=== PATIENT | male | born 1935 | race Caucasian/White ===

== ENCOUNTER 2019-01-05 12:15 | Inpatient (IN) | payer MEDICARE, OTHER ==
[~2019-01-05] VITALS: Ht 180.3 cm; Wt 71.7 kg
[2019-01-05] MEDS ORDERED: NS IV 1000 ML 1,000 ML IV STA ×2 (12:43→16:12)
[2019-01-05] MEDS ORDERED: cefTRIAXone FOR IV USE 1,000 MG in WATER (STERILE) FOR INJECTION 10 ML IV STA (12:43)
--- NOTE | 2019-01-05 12:48 | ED General ---
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 No fever, states the patient apparently had a temperature of 100.1 several days ago but no specific infection was diagnosed. There has been no observed focal neurologic abnormality like weakness or numbness. Allergies and Home Medications Allergies Coded Allergies: No Known Drug Allergies (Unverified , 01/05/19) Patient Home Medication List Home Medication List Reviewed: Yes Review of Systems Review of Systems Constitutional: see HPI EENTM: no symptoms reported Respiratory: see HPI Cardiovascular: no symptoms reported Gastrointestinal: no symptoms reported Genitourinary: no symptoms reported Musculoskeletal: no symptoms reported Skin: no symptoms reported Psychiatric/Neurological: See HPI Hematologic/Lymphatic: No Symptoms Reported Immunological/Allergic: no symptoms reported Past Nvanudd-Txvocl-Sonaxn Hx Past Med/Social Hx: Reviewed Nursing Past Med/Soc Hx Physical Exam Vital Signs Vital Signs - First Documented 01/05/19 12:15 Temp 97.2 Pulse 65 Resp 20 B/P (MAP) 160/101 (120) Pulse Ox 95 O2 Delivery Room Air Capillary Refill : Height, Weight, BMI Height: '" Weight: lbs. oz. kg; BMI Method: General Appearance: No Apparent Distress Eyes: Bilateral Eye PERRL, Bilateral Eye EOMI HEENT: Other (tacky mucous membranes) Neck: Supple; No JVD Respiratory: Lungs Clear; No Rales, No Rhonci, No Stridor, No Wheezing Cardiovascular: Regular Rate, Rhythm, Normal Peripheral Pulses Gastrointestinal: Non Tender, Soft Neurologic/Psychiatric: Other (patient is awake with eyes closed, he is doing repetitive movements with his face, he will open his eyes to command, he will move all extremities grossly symmetrically with approximately 4 out of 5 strength in all extremities except with hip flexion which is about 3 of 5, patient's is unaware of a history of focal weakness but she states that he does require assistance to stand) Skin: Warm/Dry Focused Exam Lactate Level 01/05/19 13:36: Lactic Acid Level 1.27 Lactic Acid Level Laboratory Tests Test 4/25/19 13:36 Lactic Acid Level 1.27 MMOL/L (0.50-2.00) Procedures/Interventions Lumen: single (ultrasound guided IV placement at 1:20 PM. Indication: Inability to obtain venous access, administration of medication, obtaining blood for labs. Probe covered with sterile gloves, sterile gel was used. Large area in the right antecubital fossa was prepared with chlorhexidine gluconate. 20g angiocath was inserted under direct ultrasound guidance into her right antecubital fossa vein with good blood return and fluid flow. Sterile Tegaderm was placed. One attempt. Patient tolerated the procedure very well. There were no observed complications.) Progress/Results/Core Measures Suspected Sepsis SIRS Temperature: Pulse: Respiratory Rate: Laboratory Tests 01/05/19 13:36: White Blood Count 7.4 Blood Pressure / Mean: 01/05/19 13:36: Lactic Acid Level 1.27 Laboratory Tests 01/05/19 13:36: Creatinine 1.69H, INR Comment 1.1, Platelet Count 468H, Total Bilirubin 0.4 Results/Orders Lab Results Laboratory Tests Test 01/05/19 13:36 01/05/19 14:42 Range/Units White Blood Count 7.4 4.3-11.0 10^3/uL Red Blood Count 4.48 4.35-5.85 10^6/uL Hemoglobin 13.6 13.3-17.7 G/DL Hematocrit 43 40-54 % Mean Corpuscular Volume 96 80-99 FL Mean Corpuscular Hemoglobin 30 25-34 PG Mean Corpuscular Hemoglobin Concent 32 32-36 G/DL Red Cell Distribution Width 13.3 10.0-14.5 % Platelet Count 468 H 130-400 10^3/uL Mean Platelet Volume 9.9 7.4-10.4 FL Neutrophils (%) (Auto) 71 42-75 % Lymphocytes (%) (Auto) 13 12-44 % Monocytes (%) (Auto) 10 0-12 % Eosinophils (%) (Auto) 5 0-10 % Basophils (%) (Auto) 1 0-10 % Neutrophils # (Auto) 5.3 1.8-7.8 X 10^3 Lymphocytes # (Auto) 0.9 L 1.0-4.0 X 10^3 Monocytes # (Auto) 0.7 0.0-1.0 X 10^3 Eosinophils # (Auto) 0.3 0.0-0.3 10^3/uL Basophils # (Auto) 0.1 0.0-0.1 10^3/uL Prothrombin Time 14.4 12.2-14.7 SEC INR Comment 1.1 0.8-1.4 Activated Partial Thromboplast Time 33 24-35 SEC Sodium Level 144 135-145 MMOL/L Potassium Level 4.4 3.6-5.0 MMOL/L Chloride Level 103 98-107 MMOL/L Carbon Dioxide Level 26 21-32 MMOL/L Anion Gap 15 H 5-14 MMOL/L Blood Urea Nitrogen 30 H 7-18 MG/DL Creatinine 1.69 H 0.60-1.30 MG/DL Estimat Glomerular Filtration Rate 39 BUN/Creatinine Ratio 18 Glucose Level 92 70-105 MG/DL Lactic Acid Level 1.27 0.50-2.00 MMOL/L Calcium Level 9.4 8.5-10.1 MG/DL Corrected Calcium 9.9 8.5-10.1 MG/DL Total Bilirubin 0.4 0.1-1.0 MG/DL Aspartate Amino Transf (AST/SGOT) 11 5-34 U/L Alanine Aminotransferase (ALT/SGPT) 8 0-55 U/L Alkaline Phosphatase 70 40-136 U/L Troponin T 50 H <=15 NG/L Pro-B-Type Natriuretic Peptide 752.4 H <75.0 PG/ML Total Protein 7.2 6.4-8.2 GM/DL Albumin 3.4 3.2-4.5 GM/DL Urine Color YELLOW Urine Clarity CLEAR Urine pH 5.5 5-9 Urine Specific Hancock 1.025 H 1.016-1.022 Urine Protein NEGATIVE NEGATIVE Urine Glucose (UA) NEGATIVE NEGATIVE Urine Ketones NEGATIVE NEGATIVE Urine Nitrite NEGATIVE NEGATIVE Urine Bilirubin NEGATIVE NEGATIVE Urine Urobilinogen 0.2 NORMAL MG/DL Urine Leukocyte Esterase NEGATIVE NEGATIVE Urine RBC (Auto) NEGATIVE NEGATIVE Urine RBC NONE /HPF Urine WBC 0-2 /HPF Urine Squamous Epithelial Cells 0-2 /HPF Urine Crystals NONE /LPF Urine Bacteria NEGATIVE /HPF Urine Casts NONE /LPF Urine Mucus NONE /LPF Urine Culture Indicated NO My Orders Orders - AGUILAR CADE DO Ct Head Wo (01/05/19 12:20) Chest 1 View Ap/Pa Only (01/05/19 12:20) Ekg Tracing (01/05/19 12:20) Cbc With Automated Diff (01/05/19 12:20) Comprehensive Metabolic Panel (01/05/19 12:20) Probnp Fs (01/05/19 12:20) Troponin T (01/05/19 12:20) Protime With Inr (01/05/19 12:20) Partial Thromboplastin Time (01/05/19 12:20) Ua Culture If Indicated (01/05/19 12:20) Lactic Acid Analyzer (01/05/19 12:42) Ns Iv 1000 Ml (Sodium Chloride 0.9%) (01/05/19 12:43) Ceftriaxone For Iv Use (Rocephin For I (01/05/19 12:43) Blood Culture (01/05/19 13:13) Blood Culture (01/05/19 13:51) Clindamycin 600 Mg/50 Ml Ivpb (Cleocin P (01/05/19 14:30) Aspirin Suppository (Aspirin Suppository (01/05/19 16:12) Ns Iv 1000 Ml (Sodium Chloride 0.9%) (01/05/19 16:12) Medications Given in ED Current Medications Medications Dose Ordered Sig/Debby Route Start Time Stop Time Status Last Admin Dose Admin Clindamycin Phosphate/Dextrose 50 ml @ 100 mls/hr ONCE ONCE IV 01/05/19 14:30 01/05/19 14:59 DC 01/05/19 15:06 100 MLS/HR Vital Signs/I&O 01/05/19 01/05/19 12:15 14:57 Temp 97.2 Pulse 65 Resp 20 20 B/P (MAP) 160/101 (120) 107/61 Pulse Ox 95 97 O2 Delivery Room Air Room Air Capillary Refill : Progress Note : Progress Note Pt treated for aspiration PNA w rocephin and clindamycin, received 1 L NSS bolus as well for possible sepsis although BP remained stable and lactate <2. Clinically he remained stable overall while in the ED. Did have elevated troponin but pt is able to state not having chest pain. I have included rectal ASA in admission orders as we do not have suppository form of aspirin here and as pt clearly an aspiration risk. I have also included serial troponins for admission orders. I will give a second liter bolus at 500 mL an hour while patient is on the monitor, he is obviously dehydrated based on his history of dysphagia recently and with a developing infection ensuring that he is adequately volume resuscitated now may improve his outcome if he is a late presenter with severe sepsis or septic shock. Pt's stay was prolonged as we were unable to reach Dr Wooten for some time however when we did reach him he stated the printed call schedule was inaccurate and Dr Elias was actually the covering hospitalist at this time. Dr Elias did accept admission, requested for admission orders joseph, NSS mIVF at 70 ml/hr, list Dr Womack as consult and she would actually contact him. ECG EKG : Comment 1238: Sinus rhythm with first-degree AV block rate of 65, WI interval is 212 ms. Normal axis. Early precordial R-wave progression. Scooping of the ST segment with up to 1 mm of depression in leads 2 and V3 through V6. Nonspecific T-wave flattening in 3 and aVF. Small lateral Q waves. Departure Impression Primary Impression: Aspiration pneumonitis Additional Impressions: Acute encephalopathy Elevated troponin Elevated brain natriuretic peptide (BNP) level Disposition: 09 ADMITTED INPATIENT Condition: Stable Transfer Time Spoke to Accepting Phy: 15:[address] Elias accepts at [facility]. Method of Transfer: EMS AGUILAR CADE DO Jan 05, 2019 12:48
--- NOTE | 2019-01-05 14:11 | Diagnostic Imaging Report ---
INDICATION: Lethargy. EXAMINATION: CT brain obtained without IV contrast. COMPARISON: There are no prior studies for comparison. FINDINGS: Portions of the study are limited by motion artifact. There are diffuse atrophic changes. There are chronic encephalomalacia changes in the frontal lobes of both sides. There is diffuse ventricular prominence which is likely secondary to volume loss. There is no acute hemorrhage or mass effect or midline shift. Calvarial windows are normal. IMPRESSION: Atrophic changes and chronic changes in deep white matter with chronic encephalomalacia changes in the frontal lobes. Ventricular prominence is seen which is likely secondary to volume loss. There is no acute hemorrhage or definite acute finding. Dictated by: Dictated on workstation # [id number]
--- NOTE | 2019-01-05 14:17 | Diagnostic Imaging Report ---
INDICATION: Shortness of air. COMPARISON: None. FINDINGS: Single frontal radiographic view of the chest was obtained and shows normal cardiac silhouette and pulmonary vasculature. Lung fragoso show patchy alveolar opacity within the right lung base partially obscuring the right hemidiaphragm. Lungs otherwise show low inspiratory volumes with crowding of central hilar structures. There is no large pleural effusion or pneumothorax. Bony structures show no gross acute abnormalities. IMPRESSION: 1. Patchy airspace opacities within the right base concerning for pneumonia. Followup is recommended. Dictated by: Dictated on workstation # [id number]
[2019-01-05 14:23] LABS: HEMATOCRIT 43 % (40-54); HEMOGLOBIN 13.6 G/DL (13.3-17.7); MEAN CORPUSCULAR HEMOGLOBIN 30 PG (25-34); MEAN CORPUSCULAR VOLUME 96 FL (80-99); WHITE BLOOD COUNT 7.4 10^3/uL (4.3-11.0)
[2019-01-05 14:24] LABS: BASOPHILS # (AUTO) 0.1 10^3/uL (0.0-0.1); BASOPHILS % (AUTO) 1 % (0-10); EOSINOPHILS # (AUTO) 0.3 10^3/uL (0.0-0.3); EOSINOPHILS % (AUTO) 5 % (0-10); LYMPHOCYTES # (AUTO) 0.9 X 10^3 (1.0-4.0); LYMPHOCYTES % (AUTO) 13 % (12-44); MEAN CORPUSCULAR HGB CONC 32 G/DL (32-36); MEAN PLATELET VOLUME 9.9 FL (7.4-10.4); MONOCYTES # (AUTO) 0.7 X 10^3 (0.0-1.0); MONOCYTES % (AUTO) 10 % (0-12); NEUTROPHILS # (AUTO) 5.3 X 10^3 (1.8-7.8); NEUTROPHILS % (AUTO) 71 % (42-75); PLATELET COUNT 468 10^3/uL (130-400); RED CELL DISTRIBUTION WIDTH 13.3 % (10.0-14.5)
[2019-01-05 14:27] LABS: INR 1.1 (0.8-1.4); PROTHROMBIN TIME PATIENT 14.4 SEC (12.2-14.7)
[2019-01-05 14:28] LABS: ALBUMIN 3.4 GM/DL (3.2-4.5); BILIRUBIN,TOTAL 0.4 MG/DL (0.1-1.0); CALCIUM 9.4 MG/DL (8.5-10.1); CREATININE SERUM 1.69 MG/DL (0.60-1.30); POTASSIUM 4.4 MMOL/L (3.6-5.0); TOTAL PROTEIN 7.2 GM/DL (6.4-8.2)
[2019-01-05] MEDS ORDERED: CLINDAMYCIN 600 MG/50 ML IVPB 50 ML IV ONE (14:30)
[2019-01-05] MEDS ORDERED: CHOL100045 PO (15:27)
[2019-01-05] MEDS ORDERED: SENN-141 PO (15:27)
[2019-01-05] MEDS ORDERED: LOSA1TAB20 PO (15:27)
[2019-01-05] MEDS ORDERED: AMAN100C18 PO (15:27)
[2019-01-05] MEDS ORDERED: ALPR0.254 PO (15:27)
[2019-01-05] MEDS ORDERED: LEVE500T6 PO (15:28)
[2019-01-05] MEDS ORDERED: MAGN400O7 PO (15:29)
[2019-01-05] MEDS ORDERED: ASPIRIN 300 MG (5 GR) SUPPOSITORY PR STA (16:12)
[2019-01-05 16:16] LABS: BACTERIA,URINE NEGATIVE /HPF; BILIRUBIN,URINE NEGATIVE (NEGATIVE); CLARITY,URINE CLEAR; COLOR,URINE YELLOW; GLUCOSE, URINE (UA) NEGATIVE (NEGATIVE); KETONES,URINE NEGATIVE (NEGATIVE); LEUKOCYTE ESTERASE ,URINE NEGATIVE (NEGATIVE); NITRITE,URINE NEGATIVE (NEGATIVE); PH,URINE 5.5 (5-9); PROTEIN,URINE NEGATIVE (NEGATIVE); SQUAMOUS EPITHELIAL CELL,UR 0-2 /HPF; UROBILINOGEN,URINE 0.2 MG/DL (NORMAL); WBC,URINE 0-2 /HPF
--- NOTE | 2019-01-05 18:30 | NUR ---
Kris Ames admitted to room 409-1, with an admitting diagnosis of pna , on 01/05/19 from [facility] ED via [facility], accompanied by ET STAFF.KRIS AMES introduced to surroundings, call light, bed controls, phone, TV, temperature control, lights, meal times, smoking policy, visitor policy, side rail policy, bathrooms and showers. Patient Rights given to patient in the handbook.KRIS AMES verbalizes understanding that [facility] is not responsible for the loss or damage to any personal effects or valuables that are kept in the patients posession during their hospitalization. The Patient Care Plans were discussed with the PT ET FAMILY. KRIS AMES verbalizes understanding of Interdisciplinary Patient Education. Patient and/or family were informed about the Rapid Response Team and its purpose.
[2019-01-05] MEDS ORDERED: NS IV 1000 ML 1,000 ML IV SCH (19:00)
[2019-01-05] MEDS ORDERED: PIPERACILLIN/TAZO 4.5 GM/NS 100 ML IV NR ×2 (19:00)
[2019-01-05] MEDS ORDERED: ASPIRIN 300 MG (5 GR) SUPPOSITORY PR NR (19:00)
[2019-01-05 20:06] VITALS: BP 171/88
[2019-01-05 20:35] VITALS: BP 133/75
--- NOTE | 2019-01-05 20:36 | NUR ---
Pt's requesting that HS medications be restarted. Dr. Elias notified. Orders received to restart Keppra 500 mg PO BID, Xanax 0.25 mo PO BID, et Amantadine 100 mg PO BID.
[2019-01-05] MEDS ORDERED: ALPRAZolam 0.25 MG (XANAX) TAB ONE (21:33)
[2019-01-05] MEDS ORDERED: LEVETIRACETAM 500 MG (KEPPRA) TAB PO ONE (21:34)
[2019-01-05] MEDS ORDERED: AMANTADINE 100 MG (SYMMETREL) CAP PO ONE (21:40)
[2019-01-05] MEDS: ALPRAZolam 0.25 MG (XANAX) TAB PO SCH (21:45)
[2019-01-05] MEDS: AMANTADINE 100 MG (SYMMETREL) CAP PO SCH (21:45)
[2019-01-05] MEDS: LEVETIRACETAM 500 MG (KEPPRA) TAB PO SCH (21:45)
[2019-01-05] MEDS: RT-ALBUTEROL SULF 2.5 MG/3 ML PRE-MIX VIAL IH SCH (21:57)
[2019-01-06 00:57] VITALS: BP 145/73
[2019-01-06] MEDS: PIPERACILLIN/TAZO 4.5 GM/NS 100 ML IV SCH ×6 (01:53→16:39)
[2019-01-06] MEDS: RT-ALBUTEROL SULF 2.5 MG/3 ML PRE-MIX VIAL IH SCH ×6 (02:03→22:07)
[2019-01-06 04:00] VITALS: BP 120/68
[2019-01-06 04:14] LABS: BASOPHILS % (AUTO) 1 % (0-10); EOSINOPHILS # (AUTO) 0.3 10^3/uL (0.0-0.3); EOSINOPHILS % (AUTO) 4 % (0-10); HEMATOCRIT 39 % (40-54); HEMOGLOBIN 12.6 G/DL (13.3-17.7); LYMPHOCYTES # (AUTO) 0.7 X 10^3 (1.0-4.0); LYMPHOCYTES % (AUTO) 12 % (12-44); MEAN CORPUSCULAR HEMOGLOBIN 31 PG (25-34); MEAN CORPUSCULAR HGB CONC 32 G/DL (32-36); MEAN CORPUSCULAR VOLUME 94 FL (80-99); MEAN PLATELET VOLUME 9.5 FL (7.4-10.4); MONOCYTES # (AUTO) 0.8 X 10^3 (0.0-1.0); MONOCYTES % (AUTO) 12 % (0-12); NEUTROPHILS # (AUTO) 4.4 X 10^3 (1.8-7.8); NEUTROPHILS % (AUTO) 71 % (42-75); PLATELET COUNT 381 10^3/uL (130-400); RED CELL DISTRIBUTION WIDTH 13.5 % (10.0-14.5); WHITE BLOOD COUNT 6.2 10^3/uL (4.3-11.0)
[2019-01-06 04:33] LABS: ALANINE AMINOTRANSFERASE 12 U/L (0-55); ALBUMIN 3.1 GM/DL (3.2-4.5); ALKALINE PHOSPHATASE 59 U/L (40-136); BILIRUBIN,TOTAL 0.5 MG/DL (0.1-1.0); BUN/CREATININE RATIO 18; CALCIUM 8.9 MG/DL (8.5-10.1); CARBON DIOXIDE 19 MMOL/L (21-32); CHLORIDE 112 MMOL/L (98-107); CREATININE SERUM 1.48 MG/DL (0.60-1.30); GFR ESTIMATED 46; GLUCOSE 90 MG/DL (70-105); POTASSIUM 4.2 MMOL/L (3.6-5.0); SODIUM 144 MMOL/L (135-145)
[2019-01-06 08:00] VITALS: BP 158/70
--- NOTE | 2019-01-06 08:07 | Diagnostic Imaging Report ---
INDICATION: Pneumonia, followup. TECHNIQUE: Single view chest 5:56 a.m. CORRELATION STUDY: 01/05/2019 FINDINGS: Heart size and mediastinum are stable, as is the vasculature. Some residual infiltrate or atelectasis of the right lung base does persist but overall is improved. Unchanged elevated right diaphragm. Left lung unchanged. Rather advanced multilevel cervical spondylosis. IMPRESSION: 1. Improvement in aeration through the right lung base. Some residual atelectasis or infiltrate does remain. Dictated by: Dictated on workstation # [id number]
[2019-01-06] MEDS ORDERED: AMAN100C18 PO (08:40)
[2019-01-06] MEDS ORDERED: MAGN400O7 PO (08:40)
[2019-01-06] MEDS ORDERED: STAR227P PO (08:42)
--- NOTE | 2019-01-06 08:42 | NUR ---
UPDATED MED REC WITH MED LIST FROM [facility]
--- NOTE | 2019-01-06 09:05 | Consultation-Cardiology ---
HPI-Cardiology Cardiology Consultation: Date of Consultation 01/06/19 Time Seen by a Provider: 08:40 Date of Admission Attending Physician Claire Elias DO Admitting Physician No,Local Physician Consulting Physician MARY NOBLE MD, MA, FACP, FACC, [facility], CCDS Physician requesting consult: Dr Elias HPI: Chief Complaint: Reason for consultation: Elevated pro-BNP 83 yo man with numerous medical issues that are noted below who has been admitted by Dr Elias to her service after he presented to [facility] with gen weakness, low oxygen sat, and refusal to eat at his NH. He was diagnosed with aspiration pneumonia and mental status change. Communication is difficult. He is vague in providing a history. His is by his bedside today. He does not report cp or palp or syncope Has gen poor appetite Has had some shortness of breath lately Review of Systems-Cardiology Review of Systems Constitutional: As described under HPI Eyes: No vision change Ears/Nose/Throat: No ear discharge, No nasal drainage, No recent hearing loss Respiratory: As described under HPI Cardiovascular: As described under HPI Gastrointestinal: No diarrhea, No difficulty swallowing; poor appetite; No vomiting Genitourinary: No dysuria, No hematuria, No urine frequency changes Musculoskeletal: No back pain, No joint pain Skin: No rash, No ulcerations Psychiatric/Neurological: other (Oriented to place and person, but not time; chronic involuntary movements of limbs and head) GYZ-Exrrti-Bqgjvr Hx Patient Social History Alcohol Use: Denies Use Recreational Drug Use: No Smoking Status: Never a Smoker Recent Foreign Travel: No Recent Infectious Disease Expo: No Immunizations Up To Date Date of Pneumonia Vaccine: Jun 13, 2018 Past Medical History PMH As described under Assessment. Family Medical History Family Medical History: Does not report fam h/o of early CAD or SCD Does report fam h/o or Davison's chorea (daugther, brother, probably father) Allergies and Home Medications Allergies Coded Allergies: No Known Drug Allergies (Unverified , 01/05/19) Home Medications Alprazolam 0.25 Mg Tablet, 0.25 MG PO 0800,1700, (Reported) Amantadine HCl 100 Mg Capsule, 100 MG PO BID, (Reported) Amantadine HCl 100 Mg Capsule, 100 MG PO DAILY PRN for INCREASED INVOLUNTARY MOVEMENT, (Reported) Cholecalciferol (Vitamin D3) 1,000 Unit Tablet, 1,000 UNITS PO 1700, (Reported) Levetiracetam 500 Mg Tablet, 500 MG PO 0800,2000, (Reported) Losartan/Hydrochlorothiazide 1 Each Tablet, 1 TAB PO DAILY, (Reported) Magnesium Hydroxide 400 Mg/5 Ml Oral.susp, 30 ML PO TuFrSa, (Reported) Magnesium Hydroxide 400 Mg/5 Ml Oral.susp, 30 ML PO DAILY PRN for CONSTIPATION- 7TH LINE, (Reported) Sennosides 8.6 Mg Tablet, 8.6 MG PO BID, (Reported) Starch 227 Gm Powder, PO UD PRN for LIQUIDS, (Reported) Patient Home Medication List Home Medication List Reviewed: Yes Physical Exam-Cardiology Physical Exam Vital Signs/I&O 01/05/19 01/06/19 01/06/19 01/06/19 21:57 00:57 01:00 04:00 Temp 98.6 98.8 Pulse 84 80 71 Resp 20 20 B/P (MAP) 145/73 (97) 120/68 (85) Pulse Ox 92 96 98 O2 Delivery Room Air Room Air Room Air 01/06/19 01/06/19 01/06/19 07:00 07:31 08:00 Temp 96.1 Pulse 72 74 Resp 18 B/P (MAP) 158/70 (99) Pulse Ox 96 93 O2 Delivery Room Air Room Air 01/06/19 00:00 Intake Total 2130 ml Output Total 250 ml Balance 1880 ml Capillary Refill : Less Than 3 Seconds Constitutional: well-developed, well-nourished, other (Oriented x 2; communication difficult) HEENT: PERRL, EOMI; No xanthelasmas are seen Neck: carotid pulses are 2 + bilaterally, with good upstrokes Respiratory: No accessory muscle use; other (basal coarse crackle, more at R, alongwith diminished air entry at the bases) Cardiovascular: regular rate-rhythm, S1 and S2, systolic murmur (soft LEYDA at card base) Gastrointestinal: No tender; soft; No guarding, No rebound; audible bowel sounds Extremities: No clubbing, No cyanosis, No significant edema Neurologic/Psychiatric: other (See above for mental status, involuntary movement of head and neck; moves all limbs) Skin: No rash on exposed areas, No ulcerations on exposed areas Data Review Labs Laboratory Tests 01/05/19 13:36: White Blood Count 7.4, Red Blood Count 4.48, Hemoglobin 13.6, Hematocrit 43, Mean Corpuscular Volume 96, Mean Corpuscular Hemoglobin 30, Mean Corpuscular Hemoglobin Concent 32, Red Cell Distribution Width 13.3, Platelet Count 468H, Mean Platelet Volume 9.9, Neutrophils (%) (Auto) 71, Lymphocytes (%) (Auto) 13, Monocytes (%) (Auto) 10, Eosinophils (%) (Auto) 5, Basophils (%) (Auto) 1, Neutrophils # (Auto) 5.3, Lymphocytes # (Auto) 0.9L, Monocytes # (Auto) 0.7, Eosinophils # (Auto) 0.3, Basophils # (Auto) 0.1, Prothrombin Time 14.4, INR Comment 1.1, Activated Partial Thromboplast Time 33, Sodium Level 144, Potassium Level 4.4, Chloride Level 103, Carbon Dioxide Level 26, Anion Gap 15H , Blood Urea Nitrogen 30H, Creatinine 1.69H, Estimat Glomerular Filtration Rate 39, BUN/Creatinine Ratio 18, Glucose Level 92, Lactic Acid Level 1.27, Calcium Level 9.4, Corrected Calcium 9.9, Total Bilirubin 0.4, Aspartate Amino Transf ( AST/SGOT) 11, Alanine Aminotransferase (ALT/SGPT) 8, Alkaline Phosphatase 70, Troponin T 50H, Pro-B-Type Natriuretic Peptide 752.4H, Total Protein 7.2, Albumin 3.4 01/05/19 14:42: Urine Color YELLOW, Urine Clarity CLEAR, Urine pH 5.5, Urine Specific Byron 1.025H, Urine Protein NEGATIVE, Urine Glucose (UA) NEGATIVE, Urine Ketones NEGATIVE, Urine Nitrite NEGATIVE, Urine Bilirubin NEGATIVE, Urine Urobilinogen 0.2, Urine Leukocyte Esterase NEGATIVE, Urine RBC (Auto) NEGATIVE, Urine RBC NONE, Urine WBC 0-2, Urine Squamous Epithelial Cells 0-2, Urine Crystals NONE, Urine Bacteria NEGATIVE, Urine Casts NONE, Urine Mucus NONE, Urine Culture Indicated NO 01/05/19 19:05: Troponin I < 0.028 01/06/19 04:05: White Blood Count 6.2, Red Blood Count 4.12L, Hemoglobin 12.6L, Hematocrit 39L, Mean Corpuscular Volume 94, Mean Corpuscular Hemoglobin 31, Mean Corpuscular Hemoglobin Concent 32, Red Cell Distribution Width 13.5, Platelet Count 381, Mean Platelet Volume 9.5, Neutrophils (%) (Auto) 71, Lymphocytes (%) (Auto) 12, Monocytes (%) (Auto) 12, Eosinophils (%) (Auto) 4, Basophils (%) (Auto) 1, Neutrophils # (Auto) 4.4, Lymphocytes # (Auto) 0.7L, Monocytes # (Auto) 0.8, Eosinophils # (Auto) 0.3, Basophils # (Auto) 0.0, Sodium Level 144, Potassium Level 4.2, Chloride Level 112H, Carbon Dioxide Level 19L, Anion Gap 13, Blood Urea Nitrogen 26H, Creatinine 1.48H, Estimat Glomerular Filtration Rate 46, BUN/ Creatinine Ratio 18, Glucose Level 90, Calcium Level 8.9, Corrected Calcium 9.6 , Total Bilirubin 0.5, Aspartate Amino Transf (AST/SGOT) 10, Alanine Aminotransferase (ALT/SGPT) 12, Alkaline Phosphatase 59, Total Protein 6.0L, Albumin 3.1L, Troponin I < 0.028 Laboratory Tests 01/05/19 13:36 01/06/19 04:05 A/P-Cardiology Assessment/Admission Diagnosis 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 His does not desire any extensive cardiac w/u. Desires that he be treated conservatively and empirically. This appears reasonable, given that there there do not appear to be acute cardiac issues, clinically * We recommend continuation of iv fluids and monitoring of renal function and electrolytes * Dr Elias is managing his aspiration pneumonia, chorea, and altered mental status * Thanks for calling us in consultation Clinical Quality Measures DVT/VTE Risk/Contraindication: Risk Factor Score Per Nursin RFS Level Per Nursing on Admit: 4+=Very High MARY NOBLE MD FACP LOCATED [facility]IN [facility] CCDS Jan 06, 2019 09:05
[2019-01-06] MEDS: LEVETIRACETAM 500 MG (KEPPRA) TAB PO SCH ×2 (09:09→20:39)
[2019-01-06] MEDS: AMANTADINE 100 MG (SYMMETREL) CAP PO SCH ×2 (09:10→20:39)
[2019-01-06] MEDS: ALPRAZolam 0.25 MG (XANAX) TAB PO SCH ×2 (09:10→20:38)
--- NOTE | 2019-01-06 09:55 | History & Physical-Hospitalist ---
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 The most recent was January of 2018 with a hemorrhagic stroke that has resulted in bed ridden state at assisted living [place] where he will return to with significant help from who presented to the ER in [place] with altered mental status and Hypoxia found to have pneumonia, likely aspiration type. He has never had swallowing issues before per . I have restarted all of his home medications along with the help of his who knows the list by heart. He is a two person assist. Speech therapy will evaluate him but he seems to be eating and drinking well without any aspiration signs so will follow up with speech therapy but initiate a regular diet with grinded meat. He will be maintained on Zosyn empiric antibiotics and will be monitored closely. Source: RN/MD, caregiver Exam Limitations: clinical condition Date Seen 01/06/19 Time Seen by a Provider: 09:15 Attending Physician Claire Elias DO PCP No,Local Physician Referring Physician Date of Admission Jan 05, 2019 at 15:55 Home Medications & Allergies Home Medications Reviewed patient Home Medication Reconciliation performed by pharmacy medication reconciliations automobile technician and/or nursing. Patients Allergies have been reviewed. Allergies Allergies Coded Allergies No Known Drug Allergies (Unverified01/05/19) Past [id number]-Rpzhem Hx Past Med/Social Hx: Reviewed Nursing Past Med/Soc Hx, Reviewed and Corrections made Patient Social History Marrital Status: Employed/Student: retired Alcohol Use: Denies Use Recreational Drug Use: No Smoking Status: Never a Smoker Recent Foreign Travel: No Contact w/other who traveled: No Recent Hopitalizations: No Recent Infectious Disease Expo: No Immunizations Up To Date Date of Pneumonia Vaccine: Jun 13, 2018 Seasonal Allergies Seasonal Allergies: No Past Medical History Surgeries: Prostatectomy Cardiac: Hypertension Neurological: Parkinson's Disease, Seizure Disorder, Traumatic Brain Injury Faribault's chorea Gastrointestinal: Chronic Constipation Psychosocial: Anxiety History of Blood Disorders: No Review of Systems Constitutional: see HPI, fever, malaise, weakness EENTM: no symptoms reported Respiratory: cough Cardiovascular: no symptoms reported Gastrointestinal: no symptoms reported Genitourinary: no symptoms reported Musculoskeletal: no symptoms reported Skin: no symptoms reported Psychiatric/Neurological: No Symptoms Reported All Other Systems Reviewed Negative Unless Noted: Yes Physical Exam Physical Exam Vital Signs Vital Signs - First Documented 01/05/19 12:15 Temp 97.2 Pulse 65 Resp 20 B/P (MAP) 160/101 (120) Pulse Ox 95 O2 Delivery Room Air Capillary Refill : Less Than 3 Seconds Height, Weight, BMI Height: 5'11.00" Weight: 158lbs. 7.0oz. [id number]; 24.8 BMI Method:Actual General Appearance: No Apparent Distress, WD/WN, Chronically ill Eyes: Right Eye Normal Inspection, Right Eye PERRL HEENT: PERRL/EOMI, Normal ENT Inspection, Pharynx Normal, Moist Mucous Membranes Neck: Full Range of Motion, Normal Inspection, Non Tender Respiratory: Chest Non Tender, No Accessory Muscle Use, No Respiratory Distress , Crackles, Decreased Breath Sounds Cardiovascular: Regular Rate, Rhythm, No Edema, No Gallop, No JVD, No Murmur, Normal Peripheral Pulses Gastrointestinal: Normal Bowel Sounds, No Organomegaly, No Pulsatile Mass, Non Tender, Soft Back: Normal Inspection, No CVA Tenderness, No Vertebral Tenderness Extremity: Normal Capillary Refill, Normal Inspection, Normal Range of Motion, Non Tender, No Calf Tenderness, No Pedal Edema Neurologic/Psychiatric: Alert, Depressed Affect, Disoriented, Motor Weakness ( generalized and chronic) Skin: Normal Color, Warm/Dry Lymphatic: No Adenopathy Results Results/Procedures Labs Laboratory Tests 01/05/19 13:36 01/06/19 04:05 Patient resulted labs reviewed. Assessment/Plan Admission Diagnosis Assessment: Aspiration pneumonia [place]'s chorea HTN Seizures Hemorrhagic stroks 01/28 Falls Severe debility CRI Plan: Home meds Nebs O2 Abx Speech therapy Admission Status: Inpatient Order (span 2 midnights) Reason for Inpatient Admission: Very debilitated advanced age patient with aspiration pneumonia Diagnosis/Problems Diagnosis/Problems (1) Aspiration pneumonitis Status: Acute (2) [place] chorea Status: Chronic (3) Parkinson disease Status: Chronic (4) Falls Status: Chronic Qualifiers: Encounter type: sequela Qualified Codes: W19.XXXS - Unspecified fall, sequela (5) Seizure Status: Chronic (6) Hypertension Status: Chronic Qualifiers: Hypertension type: essential hypertension Qualified Codes: I10 - Essential (primary) hypertension (7) Renal insufficiency Status: Chronic (8) Chronic constipation Status: Chronic (9) Elevated brain natriuretic peptide (BNP) level Status: Acute (10) Acute encephalopathy Status: Acute Clinical Quality Measures DVT/VTE Risk/Contraindication: Risk Factor Score Per Nursin RFS Level Per Nursing on Admit: 4+=Very High CLAIRE ELIAS DO Jan 06, 2019 09:55
[2019-01-06] MEDS ORDERED: amLODIPine 5 MG (NORVASC) TAB PO NR (10:00)
[2019-01-06] MEDS ORDERED: MILK OF MAGNESIA 400 MG/5 ML 30 ML UDC PO PRN (10:00)
[2019-01-06] MEDS ORDERED: AMANTADINE 100 MG (SYMMETREL) CAP PO PRN (10:04)
[2019-01-06 12:00] VITALS: BP 135/84
[2019-01-06 15:07] VITALS: BP 158/75
[2019-01-06] MEDS ORDERED: amLODIPine 5 MG (NORVASC) TAB ONE (16:32)
[2019-01-06] MEDS: VITAMIN D3 1,000 UNITS (CHOLECALCIFEROL) TABLET PO SCH (16:39)
[2019-01-06 19:16] VITALS: BP 112/56
[2019-01-06] MEDS: SENNOSIDES 8.6 MG (SENOKOT) TAB PO SCH (20:39)
[2019-01-07] VITALS (7 sets, daily range): BP systolic 95–134; BP diastolic 51–71
[2019-01-07] MEDS: PIPERACILLIN/TAZO 4.5 GM/NS 100 ML IV SCH ×6 (02:25→16:27)
[2019-01-07] MEDS: RT-ALBUTEROL SULF 2.5 MG/3 ML PRE-MIX VIAL IH SCH ×6 (02:49→22:28)
[2019-01-07 05:06] LABS: BASOPHILS % (AUTO) 0 % (0-10); EOSINOPHILS # (AUTO) 0.2 10^3/uL (0.0-0.3); EOSINOPHILS % (AUTO) 2 % (0-10); HEMATOCRIT 38 % (40-54); HEMOGLOBIN 12.1 G/DL (13.3-17.7); LYMPHOCYTES # (AUTO) 0.7 X 10^3 (1.0-4.0); LYMPHOCYTES % (AUTO) 10 % (12-44); MEAN CORPUSCULAR HEMOGLOBIN 30 PG (25-34); MEAN CORPUSCULAR HGB CONC 32 G/DL (32-36); MEAN CORPUSCULAR VOLUME 94 FL (80-99); MEAN PLATELET VOLUME 9.9 FL (7.4-10.4); MONOCYTES # (AUTO) 0.8 X 10^3 (0.0-1.0); MONOCYTES % (AUTO) 11 % (0-12); NEUTROPHILS # (AUTO) 5.3 X 10^3 (1.8-7.8); NEUTROPHILS % (AUTO) 76 % (42-75); PLATELET COUNT 432 10^3/uL (130-400); RED CELL DISTRIBUTION WIDTH 13.8 % (10.0-14.5); WHITE BLOOD COUNT 6.9 10^3/uL (4.3-11.0)
[2019-01-07 05:31] LABS: ALBUMIN 3.2 GM/DL (3.2-4.5); BILIRUBIN,TOTAL 0.6 MG/DL (0.1-1.0); CALCIUM 9.2 MG/DL (8.5-10.1); CREATININE SERUM 1.7 MG/DL (0.60-1.30); POTASSIUM 4.1 MMOL/L (3.6-5.0); TOTAL PROTEIN 6.1 GM/DL (6.4-8.2)
[2019-01-07] MEDS: MILK OF MAGNESIA 400 MG/5 ML 30 ML UDC PO SCH (07:49)
[2019-01-07] MEDS: SENNOSIDES 8.6 MG (SENOKOT) TAB PO SCH ×2 (07:50→19:56)
[2019-01-07] MEDS: LEVETIRACETAM 500 MG (KEPPRA) TAB PO SCH ×2 (07:50→19:57)
[2019-01-07] MEDS: ALPRAZolam 0.25 MG (XANAX) TAB PO SCH ×2 (07:51→19:57)
[2019-01-07] MEDS: AMANTADINE 100 MG (SYMMETREL) CAP PO SCH ×2 (07:55→19:56)
--- NOTE | 2019-01-07 08:27 | Progress Note-Hospitalist ---
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 The most recent was January of 2018 with a hemorrhagic stroke that has resulted in bed ridden state at assisted living [facility] where he will return to with significant help from who presented to the ER in [place] with altered mental status and Hypoxia found to have pneumonia, likely aspiration type. He has never had swallowing issues before per . I have restarted all of his home medications along with the help of his who knows the list by heart. He is a two person assist. Speech therapy will evaluate him but he seems to be eating and drinking well without any aspiration signs so will follow up with speech therapy but initiate a regular diet with grinded meat. He will be maintained on Zosyn empiric antibiotics and will be monitored closely. Focused Exam Lactate Level 01/05/19 13:36: Lactic Acid Level 1.27 Objective Exam Vital Signs Vital Signs Date Time Temp Pulse Resp B/P (MAP) Pulse Ox O2 Delivery O2 Flow Rate FiO2 01/07/19 15:44 100.2 77 21 123/60 (81) 91 Room Air Capillary Refill : Less Than 3 Seconds General Appearance: No Apparent Distress, WD/WN, Chronically ill HEENT: PERRL/EOMI, Normal ENT Inspection, Pharynx Normal, Moist Mucous Membranes Neck: Full Range of Motion, Normal Inspection, Non Tender Respiratory: Chest Non Tender, No Accessory Muscle Use, No Respiratory Distress , Crackles, Decreased Breath Sounds Cardiovascular: Regular Rate, Rhythm, No Edema, No Gallop, No JVD, No Murmur, Normal Peripheral Pulses Gastrointestinal: Normal Bowel Sounds, No Organomegaly, No Pulsatile Mass, Non Tender, Soft Back: Normal Inspection, No CVA Tenderness, No Vertebral Tenderness Extremity: Normal Capillary Refill, Normal Inspection, Normal Range of Motion, Non Tender, No Calf Tenderness, No Pedal Edema Neurologic/Psychiatric: Alert, Depressed Affect, Disoriented, Motor Weakness ( generalized and chronic) Skin: Normal Color, Warm/Dry Lymphatic: No Adenopathy Results/Procedures Lab Laboratory Tests 01/07/19 04:35 Patient resulted labs reviewed. Assessment/Plan Assessment and Plan Assess & Plan/Chief Complaint Assessment: Aspiration pneumonia placed on Zosyn Sawyer's chorea HTN Seizures Hemorrhagic stroke 01/28 Falls Severe debility with bedridden status CRI creat appears to usually run 1.6 Plan: Home meds Nebs O2 Abx Speech therapy is appreciated Advance diet Diagnosis/Problems Diagnosis/Problems (1) Aspiration pneumonitis Status: Acute (2) Vic chorea Status: Chronic (3) Parkinson disease Status: Chronic (4) Falls Status: Chronic Qualifiers: Encounter type: sequela Qualified Codes: W19.XXXS - Unspecified fall, sequela (5) Seizure Status: Chronic (6) Hypertension Status: Chronic Qualifiers: Hypertension type: essential hypertension Qualified Codes: I10 - Essential (primary) hypertension (7) Renal insufficiency Status: Chronic (8) Chronic constipation Status: Chronic (9) Elevated brain natriuretic peptide (BNP) level Status: Acute (10) Acute encephalopathy Status: Acute Clinical Quality Measures DVT/VTE Risk/Contraindication: Risk Factor Score Per Nursin RFS Level Per Nursing on Admit: 4+=Very High NATALI NICE DO Jan 07, 2019 08:27
[2019-01-07] MEDS ORDERED: amLODIPine 5 MG (NORVASC) TAB PO SCH (09:00)
--- NOTE | 2019-01-07 16:14 | Progress Note-Cardiology ---
Cardiology SOAP Progress Note Subjective: No cp or palp or syncope or shortness of breath at rest Objective: I&O/Vital Signs 01/07/19 01/07/19 01/07/19 01/07/19 07:00 07:09 08:00 08:00 Temp 99.0 Pulse 75 75 Resp 20 B/P (MAP) 134/64 (87) Pulse Ox 92 92 91 O2 Delivery Room Air Room Air Room Air 01/07/19 01/07/19 01/07/19 01/07/19 10:45 12:00 12:45 14:33 Temp 98.8 Pulse 77 85 Resp 20 B/P (MAP) 100/64 (76) Pulse Ox 90 94 91 O2 Delivery Room Air Room Air Room Air 01/07/19 15:44 Temp 100.2 Pulse 77 Resp 21 B/P (MAP) 123/60 (81) Pulse Ox 91 O2 Delivery Room Air 01/07/19 00:00 Intake Total 1910 ml Output Total 575 ml Balance 1335 ml Weight (Pounds): 158 Weight (Ounces): 7.0 Weight (Calculated Kilograms): 71.323644 Constitutional: AAO x 3, well-developed, well-nourished, other Respiratory: No accessory muscle use; other (basal coarse crackle, more at R, alongwith diminished air entry at the bases) Cardiovascular: regular rate-rhythm, S1 and S2, systolic murmur (soft LEYDA at card base) Gastrointestional: No tender; soft; No guarding, No rebound; audible bowel sounds Extremities: No clubbing, No cyanosis, No significant edema Neurologic/Psychiatric: oriented x 3, other (involuntary movement of head and neck; moves all limbs) Skin: No rash on exposed areas, No ulcerations on exposed areas Results/Procedures: Labs Laboratory Tests 01/06/19 17:45: Troponin I 0.033H 01/07/19 04:35: White Blood Count 6.9, Red Blood Count 3.99L, Hemoglobin 12.1L, Hematocrit 38L, Mean Corpuscular Volume 94, Mean Corpuscular Hemoglobin 30, Mean Corpuscular Hemoglobin Concent 32, Red Cell Distribution Width 13.8, Platelet Count 432H, Mean Platelet Volume 9.9, Neutrophils (%) (Auto) 76H, Lymphocytes (%) (Auto) 10L , Monocytes (%) (Auto) 11, Eosinophils (%) (Auto) 2, Basophils (%) (Auto) 0, Neutrophils # (Auto) 5.3, Lymphocytes # (Auto) 0.7L, Monocytes # (Auto) 0.8, Eosinophils # (Auto) 0.2, Basophils # (Auto) 0.0, Sodium Level 141, Potassium Level 4.1, Chloride Level 111H, Carbon Dioxide Level 20L, Anion Gap 10, Blood Urea Nitrogen 22H, Creatinine 1.70H, Estimat Glomerular Filtration Rate 39, BUN/ Creatinine Ratio 13, Glucose Level 95, Calcium Level 9.2, Corrected Calcium 9.8 , Total Bilirubin 0.6, Aspartate Amino Transf (AST/SGOT) 12, Alanine Aminotransferase (ALT/SGPT) 8, Alkaline Phosphatase 56, Total Protein 6.1L, Albumin 3.2 Microbiology 01/05/19 Blood Culture - Preliminary, Resulted No growth Laboratory Tests 01/06/19 04:05 01/07/19 04:35 A/P: Assessment: Probable aspiration pneumonia of the RLL Posey's chorea Altered mental status, improved Renal insuff, chronicity unknown Elevated BNP w/o any distinct clinical evidence of decompensated CHF PVCs on ECG of 01/06/19. Telemetry has not shown any significant arrhythmia Plan: * Improved mental status * Monitor labs * I spoke with him and his regarding CV issues. They want conservative management MARY NOBLE MD FACP [facility] Jan 07, 2019 16:14
[2019-01-07] MEDS: VITAMIN D3 1,000 UNITS (CHOLECALCIFEROL) TABLET PO SCH (16:27)
--- NOTE | 2019-01-07 20:12 | NUR ---
THIS RN CONTACTED DR. NICE IN REGARDS TO THE PT'S BLOOD PRESSURE BEING 95/51 AND TEMPERATURE BEING 100.5. ORDERS RECEIVED FOR NS @150 MLS/HR IV ONCE, LACTIC ACID LAB, AND CONTACT ABOUT CODE STATUS OF PT. ORDERS READ BACK AND VERIFIED.
[2019-01-07] MEDS ORDERED: NS IV 1000 ML 1,000 ML ONE (20:14)
[2019-01-07] MEDS ORDERED: NS IV 1000 ML 1,000 ML IV ONE (20:15)
--- NOTE | 2019-01-07 20:41 | NUR ---
THIS RN CONTACTED PT'S IN REGARDS TO CODE STATUS. INFORMED THIS RN THAT THE PT IS SUPPOSED TO BE A DNR. CODE STATUS CHANGED FROM FULL CODE TO DNR PER DR. NICE.
[2019-01-08] MEDS: PIPERACILLIN/TAZO 4.5 GM/NS 100 ML IV SCH ×6 (00:38→17:50)
[2019-01-08] MEDS: RT-ALBUTEROL SULF 2.5 MG/3 ML PRE-MIX VIAL IH SCH ×6 (02:18→22:10)
[2019-01-08 04:42] VITALS: BP 146/77
[2019-01-08 05:12] LABS: BASOPHILS % (AUTO) 1 % (0-10); EOSINOPHILS # (AUTO) 0.4 10^3/uL (0.0-0.3); EOSINOPHILS % (AUTO) 6 % (0-10); HEMATOCRIT 43 % (40-54); LYMPHOCYTES # (AUTO) 0.8 X 10^3 (1.0-4.0); LYMPHOCYTES % (AUTO) 12 % (12-44); MEAN CORPUSCULAR HEMOGLOBIN 31 PG (25-34); MEAN CORPUSCULAR HGB CONC 32 G/DL (32-36); MEAN CORPUSCULAR VOLUME 95 FL (80-99); MONOCYTES # (AUTO) 0.7 X 10^3 (0.0-1.0); MONOCYTES % (AUTO) 11 % (0-12); NEUTROPHILS # (AUTO) 4.6 X 10^3 (1.8-7.8); NEUTROPHILS % (AUTO) 70 % (42-75); PLATELET COUNT 373 10^3/uL (130-400); RED CELL DISTRIBUTION WIDTH 13.8 % (10.0-14.5); WHITE BLOOD COUNT 6.6 10^3/uL (4.3-11.0)
[2019-01-08 05:47] LABS: ALBUMIN 3.4 GM/DL (3.2-4.5); BILIRUBIN,TOTAL 0.5 MG/DL (0.1-1.0); CALCIUM 9.6 MG/DL (8.5-10.1); CREATININE SERUM 1.82 MG/DL (0.60-1.30); POTASSIUM 4.2 MMOL/L (3.6-5.0); TOTAL PROTEIN 6.6 GM/DL (6.4-8.2)
--- NOTE | 2019-01-08 07:17 | Progress Note-Hospitalist ---
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 The most recent was January of 2018 with a hemorrhagic stroke that has resulted in bed ridden state at assisted living [facility] where he will return to with significant help from who presented to the ER in [facility] with altered mental status and Hypoxia found to have pneumonia, likely aspiration type. He has never had swallowing issues before per . I have restarted all of his home medications along with the help of his who knows the list by heart. He is a two person assist. Speech therapy will evaluate him but he seems to be eating and drinking well without any aspiration signs so will follow up with speech therapy but initiate a regular diet with grinded meat. He will be maintained on Zosyn empiric antibiotics and will be monitored closely. Subjective/Events-last exam Patient slept pretty well last night Low blood pressure later last night prompted lactic acid check since he did run a low-grade fever at the same time but that was negative 1 L of IV fluid was given just precautionary We will hold Norvasc for hypotension Patient appears to be about the same Very chronic debilitated and bedridden individual difficult to ascertain if he is improving or not Review of Systems General: Fatigue Pulmonary: Dyspnea, Cough Focused Exam Lactate Level 01/07/19 20:40: Lactic Acid Level 1.45 Objective Exam Vital Signs Vital Signs Date Time Temp Pulse Resp B/P (MAP) Pulse Ox O2 Delivery O2 Flow Rate FiO2 01/08/19 14:36 93 Room Air 01/08/19 12:00 98.4 75 18 114/70 (85) Capillary Refill : Less Than 3 Seconds General Appearance: No Apparent Distress, WD/WN, Chronically ill HEENT: PERRL/EOMI, Normal ENT Inspection, Pharynx Normal, Moist Mucous Membranes Neck: Full Range of Motion, Normal Inspection, Non Tender Respiratory: Chest Non Tender, No Accessory Muscle Use, No Respiratory Distress , Crackles, Decreased Breath Sounds Cardiovascular: Regular Rate, Rhythm, No Edema, No Gallop, No JVD, No Murmur, Normal Peripheral Pulses Gastrointestinal: Normal Bowel Sounds, No Organomegaly, No Pulsatile Mass, Non Tender, Soft Back: Normal Inspection, No CVA Tenderness, No Vertebral Tenderness Extremity: Normal Capillary Refill, Normal Inspection, Normal Range of Motion, Non Tender, No Calf Tenderness, No Pedal Edema Neurologic/Psychiatric: Alert, Depressed Affect, Disoriented, Motor Weakness ( generalized and chronic) Skin: Normal Color, Warm/Dry Lymphatic: No Adenopathy Results/Procedures Lab Laboratory Tests 01/08/19 04:40 Patient resulted labs reviewed. Assessment/Plan Assessment and Plan Assess & Plan/Chief Complaint Assessment: Aspiration pneumonia placed on Zosyn Vic's chorea HTN Seizures Hemorrhagic stroke 01/28 Falls Severe debility with bedridden status CRI creat appears to usually run 1.6 Plan: Home meds Nebs O2 Abx Speech therapy is appreciated Advance diet Diagnosis/Problems Diagnosis/Problems (1) Aspiration pneumonitis Status: Acute (2) [place] chorea Status: Chronic (3) Parkinson disease Status: Chronic (4) Falls Status: Chronic Qualifiers: Encounter type: sequela Qualified Codes: W19.XXXS - Unspecified fall, sequela (5) Seizure Status: Chronic (6) Hypertension Status: Chronic Qualifiers: Hypertension type: essential hypertension Qualified Codes: I10 - Essential (primary) hypertension (7) Renal insufficiency Status: Chronic (8) Chronic constipation Status: Chronic (9) Elevated brain natriuretic peptide (BNP) level Status: Acute (10) Acute encephalopathy Status: Acute Clinical Quality Measures DVT/VTE Risk/Contraindication: Risk Factor Score Per Nursin RFS Level Per Nursing on Admit: 4+=Very High NATALI NICE DO Jan 08, 2019 07:17
[2019-01-08 08:00] VITALS: BP 154/82
[2019-01-08] MEDS: ALPRAZolam 0.25 MG (XANAX) TAB PO SCH ×2 (08:24→20:16)
[2019-01-08] MEDS: SENNOSIDES 8.6 MG (SENOKOT) TAB PO SCH ×2 (08:24→20:16)
[2019-01-08] MEDS: LEVETIRACETAM 500 MG (KEPPRA) TAB PO SCH ×2 (08:24→20:16)
[2019-01-08] MEDS: AMANTADINE 100 MG (SYMMETREL) CAP PO SCH ×2 (08:24→20:16)
[2019-01-08 12:00] VITALS: BP 114/70
--- NOTE | 2019-01-08 14:16 | Progress Note-Cardiology ---
Cardiology SOAP Progress Note Subjective: No cp or palp or syncope or shortness of breath. Gen malaise and weakness present Objective: I&O/Vital Signs 01/08/19 01/08/19 01/08/19 01/08/19 04:42 06:52 07:00 08:00 Temp 98.7 97.6 Pulse 72 69 79 Resp 20 18 B/P (MAP) 146/77 (100) 154/82 (106) Pulse Ox 94 91 95 O2 Delivery Room Air Room Air Room Air 01/08/19 01/08/19 01/08/19 08:00 10:58 12:00 Temp 98.4 Pulse 75 Resp 18 B/P (MAP) 114/70 (85) Pulse Ox 95 90 97 O2 Delivery Room Air Room Air Room Air 01/08/19 00:00 Intake Total 810 ml Output Total 500 ml Balance 310 ml Weight (Pounds): 158 Weight (Ounces): 7.0 Weight (Calculated Kilograms): 71.627391 Constitutional: AAO x 3, well-developed, well-nourished, other Respiratory: No accessory muscle use; other (basal coarse crackle, more at R, alongwith diminished air entry at the bases) Cardiovascular: regular rate-rhythm, S1 and S2, systolic murmur (soft LEYDA at card base) Gastrointestional: No tender; soft; No guarding, No rebound; audible bowel sounds Extremities: No clubbing, No cyanosis, No significant edema Neurologic/Psychiatric: oriented x 3, other (involuntary movement of head and neck; moves all limbs) Skin: No rash on exposed areas, No ulcerations on exposed areas Results/Procedures: Labs Laboratory Tests 01/07/19 20:40: Lactic Acid Level 1.45 01/08/19 04:40: White Blood Count 6.6, Red Blood Count 4.55, Hemoglobin 14.0, Hematocrit 43, Mean Corpuscular Volume 95, Mean Corpuscular Hemoglobin 31, Mean Corpuscular Hemoglobin Concent 32, Red Cell Distribution Width 13.8, Platelet Count 373, Mean Platelet Volume 10.0, Neutrophils (%) (Auto) 70, Lymphocytes (%) (Auto) 12 , Monocytes (%) (Auto) 11, Eosinophils (%) (Auto) 6, Basophils (%) (Auto) 1, Neutrophils # (Auto) 4.6, Lymphocytes # (Auto) 0.8L, Monocytes # (Auto) 0.7, Eosinophils # (Auto) 0.4H, Basophils # (Auto) 0.0, Sodium Level 144, Potassium Level 4.2, Chloride Level 111H, Carbon Dioxide Level 19L, Anion Gap 14, Blood Urea Nitrogen 20H, Creatinine 1.82H, Estimat Glomerular Filtration Rate 36, BUN/ Creatinine Ratio 11, Glucose Level 83, Calcium Level 9.6, Corrected Calcium 10.1 , Total Bilirubin 0.5, Aspartate Amino Transf (AST/SGOT) 16, Alanine Aminotransferase (ALT/SGPT) 13, Alkaline Phosphatase 58, Total Protein 6.6, Albumin 3.4 Microbiology 01/05/19 Blood Culture - Preliminary, Resulted No growth A/P: Assessment: Probable aspiration pneumonia of the RLL Garrard's chorea Altered mental status, improved Renal insuff, chronicity unknown Elevated BNP w/o any distinct clinical evidence of decompensated CHF PVCs on ECG of 01/06/19. Telemetry has not shown any significant arrhythmia Plan: * Improved mental status * Monitor labs * D/c tele * I spoke with him and his regarding CV issues. They want conservative management MARY NOBLE MD FACP [facility]S Jan 08, 2019 14:16
[2019-01-08 15:44] VITALS: BP 138/90
[2019-01-08] MEDS: VITAMIN D3 1,000 UNITS (CHOLECALCIFEROL) TABLET PO SCH (17:50)
--- NOTE | 2019-01-08 17:59 | NUR ---
AT BEDSIDE. VERY ANXIOUS REGARDING DC. PT CURRENTLY RESIDES IN ASSISTED LIVING FACILITY. QUESTIONING WHETHER THIS IS APPROPRIATE AT [facility] (EVEN THOUGH [facility] HAS AGREED TO TAKE HIM BACK AT [facility]) OR IF HE NEEDS DETENTION OR HOME HEALTH CARE NURSING AND PT AT [facility]. SOCIAL SERVICE CONSULTED.
--- NOTE | 2019-01-08 18:12 | NUR ---
UNABLE TO ANU DYSPHAGIA 3 DIET, BECOMES VERY TIRED. SON HERE AND REQUESTS DYS 1 PUREED DIET. DIET ORDERED.
--- NOTE | 2019-01-08 18:38 | NUR ---
TOLERATED ALL OF APPLE CRISP AND MOST OF PEARS ON PUREED DIET. SEEMED MUCH EASIER FOR PT. WILL CHANGE DIET TO PUREED.
[2019-01-08 19:38] VITALS: BP 109/71
[2019-01-08 23:42] VITALS: BP 130/79
[2019-01-09] MEDS: PIPERACILLIN/TAZO 4.5 GM/NS 100 ML IV SCH ×6 (01:34→16:23)
[2019-01-09] MEDS: RT-ALBUTEROL SULF 2.5 MG/3 ML PRE-MIX VIAL IH SCH ×6 (03:00→21:47)
[2019-01-09 04:21] VITALS: BP 150/70
[2019-01-09 06:56] LABS: BASOPHILS % (AUTO) 1 % (0-10); EOSINOPHILS # (AUTO) 0.4 10^3/uL (0.0-0.3); EOSINOPHILS % (AUTO) 6 % (0-10); HEMATOCRIT 40 % (40-54); LYMPHOCYTES # (AUTO) 0.8 X 10^3 (1.0-4.0); LYMPHOCYTES % (AUTO) 12 % (12-44); MEAN CORPUSCULAR HEMOGLOBIN 31 PG (25-34); MEAN CORPUSCULAR HGB CONC 32 G/DL (32-36); MEAN CORPUSCULAR VOLUME 95 FL (80-99); MEAN PLATELET VOLUME 10.3 FL (7.4-10.4); MONOCYTES # (AUTO) 0.8 X 10^3 (0.0-1.0); MONOCYTES % (AUTO) 12 % (0-12); NEUTROPHILS # (AUTO) 4.7 X 10^3 (1.8-7.8); NEUTROPHILS % (AUTO) 69 % (42-75); PLATELET COUNT 408 10^3/uL (130-400); RED CELL DISTRIBUTION WIDTH 13.8 % (10.0-14.5); WHITE BLOOD COUNT 6.8 10^3/uL (4.3-11.0)
[2019-01-09 07:26] LABS: ALBUMIN 3.4 GM/DL (3.2-4.5); BILIRUBIN,TOTAL 0.7 MG/DL (0.1-1.0); CALCIUM 9.7 MG/DL (8.5-10.1); CREATININE SERUM 1.77 MG/DL (0.60-1.30); POTASSIUM 4.4 MMOL/L (3.6-5.0); TOTAL PROTEIN 6.7 GM/DL (6.4-8.2)
[2019-01-09 07:57] VITALS: BP 140/66
[2019-01-09] MEDS: SENNOSIDES 8.6 MG (SENOKOT) TAB PO SCH ×2 (09:00→20:47)
[2019-01-09] MEDS: ALPRAZolam 0.25 MG (XANAX) TAB PO SCH ×2 (09:00→20:47)
[2019-01-09] MEDS: LEVETIRACETAM 500 MG (KEPPRA) TAB PO SCH ×2 (09:00→20:47)
[2019-01-09] MEDS: AMANTADINE 100 MG (SYMMETREL) CAP PO SCH ×2 (09:00→20:47)
--- NOTE | 2019-01-09 09:25 | Progress Note-Cardiology ---
Cardiology SOAP Progress Note Objective: I&O/Vital Signs 01/10/19 01/10/19 01/10/19 01/10/19 04:10 08:00 08:33 10:42 Temp 98.8 98.8 Pulse 65 66 Resp 18 16 B/P (MAP) 136/80 (98) 115/72 (86) Pulse Ox 97 93 94 O2 Delivery Room Air Room Air Room Air Room Air 01/10/19 01/10/19 11:48 14:11 Temp 98.3 Pulse 67 Resp 18 B/P (MAP) 107/57 (74) Pulse Ox 96 96 O2 Delivery Room Air Room Air 01/10/19 00:00 Intake Total 520 ml Output Total 600 ml Balance -80 ml Weight (Pounds): 158 Weight (Ounces): 7.0 Weight (Calculated Kilograms): 71.892841 Constitutional: AAO x 3, well-developed, well-nourished, other Respiratory: No accessory muscle use; other (basal coarse crackle, more at R, alongwith diminished air entry at the bases) Cardiovascular: regular rate-rhythm, S1 and S2, systolic murmur (soft LEYDA at card base) Gastrointestional: No tender; soft; No guarding, No rebound; audible bowel sounds Extremities: No clubbing, No cyanosis, No significant edema Neurologic/Psychiatric: oriented x 3, other (involuntary movement of head and neck; moves all limbs) Skin: No rash on exposed areas, No ulcerations on exposed areas Results/Procedures: Labs Microbiology 01/05/19 Blood Culture - Preliminary, Resulted No growth A/P: Assessment: Probable aspiration pneumonia of the RLL Vic's chorea Altered mental status, improved Renal insuff, chronicity unknown Elevated BNP w/o any distinct clinical evidence of decompensated CHF PVCs on ECG of 01/06/19. Telemetry has not shown any significant arrhythmia Plan: * Continue current regimen * Monitor labs * Dr. Womack has spoken with him and his regarding CV issues. They want conservative management ISSAC RAMIRES Jan 09, 2019 09:25
--- NOTE | 2019-01-09 11:15 | Progress Note-Hospitalist ---
Progress Note Progress Notes/Assess & Plan Date Seen 01/09/19 Time Seen by Provider: 11:10 Assessment & Plan The patient is a very disabled white male. His states that he appeared to be fully functional except for some odd movements of his. Shoulder girdles through age 79. There are daughter is disabled with the [place]'s chorea which was apparently at a much younger age. She has a daughter who has had a movement disorder since the forest officer and may also have cognitive disabilities as well. He is currently in an assisted living facility who is providing heroic attention to him. The states that she does the bulk of the feeding. In recent days he has not seemed to have his usual appetite. Physical exam: The patient does not move much in bed. He does not speak to me but followed commands. Lungs are clear to auscultation. CV is regular. The lower extremities show rather remarkable loss of muscle mass. Impression: [place]'s chorea. 2.aspiration pneumonia/possible swallowing defect. 3.very debilitated functional capacity. Focused Exam Lactate Level 01/07/19 20:40: Lactic Acid Level 1.45 NOEMÍ LANZA MD Jan 09, 2019 11:15
[2019-01-09 11:22] VITALS: BP 128/70
--- NOTE | 2019-01-09 13:49 | ST Dysphagia Evaluation ---
Speech Evaluation-General Medical Diagnosis Aspiration Pneumonia Onset Date: Jan 05, 2019 Therapy Diagnosis Therapy Diagnosis: Oropharyngeal Dysphagia Precautions Precautions: Aspiration Precautions/Isolations: Aspiration, Fall Prevention, Standard Precautions, Pressure Ulcer Referral Referring Physician: Dr. Elias Social History Home: Assisted Living Speech PLF/Current-Dysphagia Prior Level of Function The patient is a resident in a [facility] assisted living facility. He has been a resident there for some time. The patient was Subjective The patient was pleasant and cooperative with the Bedside Dysphagia Evaluation Cognitive Status Patient Orientation: Person, Place Oral Motor Skills Dentition: Natural Denture Type: Full- Upper Current Food Consistancy: Pureed, [place] Liquids Ability to Follow Directions: Good Oral Expression Ability: Mild Impairment The patient was able to verbally answer with words or short phrases Voice Voice Phonatory-Based Quality: Weak Face Facial Symmetry: Symmetrical Oral-Facial Assessment Oral-Facial Dentition: Normal Lingual Protrusion: Abnormal Lingual ROM: Abnormal Lingual Strength: Abnormal Pharynx Velopharyngeal Move.: Normal Volitional Dry Swallow: Yes Voluntary Cough: Yes Can Clear Throat Volitionally: Yes Dysphagia Evaluation Consistencies Presented: Mechanical Soft, [place] Thick Liquid, Pureed Funct. Velo/Pharyngeal Symptom: Cough After Swallow With mechanical soft and thin liquids. Swallowing Precautions: Alternate Liquids/Solids, Double Swallow, Decreased Bolus 1/2 Tsp, Liquids from Straw, Small Bites and Sips, Sitting Upright 90 Degrees, Sitting 90 Degrees 30 Post Intake Dysphagia Evaluation Summary The patient is a pleasant 83 year old male who was admitted to the hospital secondary to aspiration pneumonia during his residency at a [facility]. The patient was compliant with the Bedside Dysphagia Evaluation. He was able to follow verbal directions during the evaluation. He was presented with thin and nectar consistency liquids. He was noted to cough/clear with the thin presented via straw. He was presented the nectar consistency via straw without difficulty noted. The patient was presented puree and mechanical soft diet trials with cough/clear noted post mechanical soft. He tolerated the puree without difficulty. The patient is currently on a puree with nectar consistency liquids which is the least restrictive for him. Education was given for compensatory strategies to his who was present the whole time. She states she feeds him at least 2 meals daily at the [place]. Barriers to Learning Patient has [place]'s Chorea. His level of alertness is somewhat decreased. Speech Short Term Goals Short Term Goals Short Term Goals 1) The patient will tolerate the least restrictive diet with 90% accuracy or greater without s/s of aspiration. 2) The patient//staff will assist the patient with his oral intake utilizing the compensatory strategies as trained at 90% or greater. Speech Tax Investigator Goals Tax Investigator Goals The patient will maintain adequate nutrition/hydration via safe effective swallow function. Speech-Plan Patient/Family Goals Patient/Family Goals: The patient will return to the assisted living where he resides upon hospital discharge. Treatment Plan Speech Therapy Treatment Plan: Continue Plan of Care The patient will receive dysphagia therapy for safety of oral intake. Treatment Duration: Jan 10, 2019 Frequency: 2 times per week Estimated Hrs Per Day: .25 hour per day Rehab Potential: Guarded Barriers to Learning: The patient has [place]'s Chorea and aspiration pneumonia Pt/Family Agrees to Plan: Yes Safety Risks/Education Teaching Recipient: Patient, Significant Other Teaching Methods: Discussion Response to Teaching: Verbalize Understanding Education Topics Provided: Safety strategies as directed for safe oral intake. Time Speech Therapy Time In: 13:00 Speech Therapy Time Out: 13:15 Total Billed Time: 15 Billed Treatment Time 1LU[address] BETH[address] ST Jan 09, 2019 13:49
[2019-01-09 15:30] VITALS: BP 112/59
--- NOTE | 2019-01-09 15:36 | NUR ---
CM/SS, respond to consult and lengthy discussion with patient's spouse, Ann Cope. PLAN: Return to [facility] via EMS due to inability to stand or sit without two trained people to assist. [facility] does not have a wheelchair transport vehicle. HHC: For PT/OT therapy in an attempt to maximize patient's ability to assist caregivers with transfers and ST at physician discretion due to aspiration pneumonia and debility from [place]'s Chorea. Patient's PCP is Dr. Clyde Turner who has moved his office to [facility]. Turn Laster confirmed with his nurse that he would be the following physician for HHC orders and post hospital care. HOSPICE: Touched on option for hospice services, Ann believed this was more for people with only a short time to live and that patient could go on several years. She has a granddaughter that is a hospice nurse, hopefully they can share a discussion and more information. SUMMARY. Patient has resided in [facility] since March 2018. They resided in [place] and had two children, son Kris Cope Jr. and daughter Trina. Their daughter also has [place]'s and, at age 59, is dependent care in a correction in [place]. Son Kris resides in [facility], he built a cottage on his property to live in while building their home so Ann resides in that now next to her son and his family. Ann describes a family tree of [place]'s with patient's father and siblings, patient's siblings, and their daughter. There are grandchildren but it is not known at this time if they carry the DNA. She reports about 5 years of decline for patient, starting with a major fall 02/2014 causing a skull fracture and 6 months of therapy to get patient to the point of walking with W. In 01/2018 they were going to [place] to visit daughter and staying in hotel, patient fell backward from transport chair and had a brain bleed. Ann reports that [facility] told them upon admission that patient would never have to leave there although it does seem he is or soon will be outside of their criteria as an assisted living. Ann goes to [facility] daily 2-3 times to help with feeding and then sits with patient until bedtime. Ann is adamant she will never admit patient to [facility]. Opened conversation about at least exploring other NH options closest to her, [facility] and [facility]. Conversed about change bringing change, and that she may determine she has to cut back on the time she provides care for patient and give care to the caregiver so to speak. She spends most of her waking day at [facility] tending to patient and just being present for him, with the exception of hands on lifting. Anticipate return to [facility] from this admission, termite exterminator helper care to be determined by Ann and family. There are financial stressors from them retiring early and unplanned large expenditures from patient's illness and care needs. She indicates they sought social services counselor from an Elder Care Pattern Worker about Medicaid and that it was not a favorable resource path and would leave her with minimal monthly income. Await final discharge orders, HHC as noted, EMS transport.
--- NOTE | 2019-01-09 15:55 | NUR ---
Pastoral care visit.
[2019-01-09] MEDS: VITAMIN D3 1,000 UNITS (CHOLECALCIFEROL) TABLET PO SCH (16:23)
[2019-01-09 19:30] VITALS: BP 121/64
[2019-01-09 23:30] VITALS: BP 155/84
[2019-01-10] MEDS: PIPERACILLIN/TAZO 4.5 GM/NS 100 ML IV SCH ×6 (01:10→17:53)
[2019-01-10] MEDS: RT-ALBUTEROL SULF 2.5 MG/3 ML PRE-MIX VIAL IH SCH ×6 (02:12→22:29)
[2019-01-10 04:10] VITALS: BP 136/80
[2019-01-10] MEDS: SENNOSIDES 8.6 MG (SENOKOT) TAB PO SCH ×2 (07:50→20:39)
[2019-01-10] MEDS: AMANTADINE 100 MG (SYMMETREL) CAP PO SCH ×2 (07:51→20:39)
[2019-01-10] MEDS: ALPRAZolam 0.25 MG (XANAX) TAB PO SCH ×2 (07:51→20:39)
[2019-01-10] MEDS: MILK OF MAGNESIA 400 MG/5 ML 30 ML UDC PO SCH (07:51)
[2019-01-10] MEDS: LEVETIRACETAM 500 MG (KEPPRA) TAB PO SCH ×2 (07:51→20:39)
[2019-01-10 08:33] VITALS: BP 115/72
--- NOTE | 2019-01-10 09:46 | NUR ---
PATIENT'S RADHA REFUSED FOR US TO GIVE THIS PATIENT A DYS III DIET AND IS DEMANDING FOR HIM TO HAVE A REGULAR DIET SO SHE CAN ORDER ITEMS THAT HE DOES LIKE TO EAT. THIS RN SPOKE WITH DR. LANZA AND HE STATED FOR THE PATIENT TO HAVE A REGULAR DIET, THIS RN INFORMED THE PATIENT'S OF THE RISKS OF AND CHOKING HAZARDS WITH ADVANCEMENT OF HIS DIET. THE STILL DEMANDS FOR THIS RN TO INCREASE THE DIET TO REGULAR.
[2019-01-10 11:48] VITALS: BP 107/57
--- NOTE | 2019-01-10 12:05 | Progress Note-Hospitalist ---
Progress Note Progress Notes/Assess & Plan Date Seen 01/10/19 Time Seen by Provider: 12:00 Assessment & Plan The patient appears stable. He has satisfactory vital signs. His is concerned about his nutrition and reports that he apparently does not like pured diet but will eat a mechanical soft. She was perplexed this morning as to why he could not have oatmeal under this plan. He was seen by speech yesterday and they recommended neck or consistency liquids and a pured to mechanical soft diet. The patient is afebrile and his vital signs are stable. It is her plan to return him to his previous assisted living facility at [place]. Physical exam: He speaks with single words. His tongue is leathery and with some white coating. Lungs are clear to auscultation. CV is regular. Muscle tone as noted before is rather flaccid and with minimum muscle mass. Impression: [place]'s chorea. 2.severe debility secondary to number 1. 3.swallowing difficulty with apparent aspiration. Plan: Return to [place] assisted living. Medications and routines are as listed on discharge sequence. Focused Exam Lactate Level 01/07/19 20:40: Lactic Acid Level 1.45 NOEMÍ LANZA MD Jan 10, 2019 12:05
--- NOTE | 2019-01-10 12:57 | Progress Note-Hospitalist ---
Progress Note Progress Notes/Assess & Plan Date Seen 01/10/19 Time Seen by Provider: 12:51 Assessment & Plan 30 minute family conference with the patient's son and his . They report and corroborate the patient's recent decline. Their assisted living facility has agreed to take him back at least in file. It is recognized by age and his neuromuscular disease that significant improvement is unlikely and that indeed it would be very unlikely that he could participate much in any physical therapy activities. The gives good support to the assisted living facility relative to assisting at feeding. Her son and his family live in [place] as well and provide support to her. It is therefore planned that we will send him back to the facility tomorrow and play it from there relative to his needs. Focused Exam Lactate Level 01/07/19 20:40: Lactic Acid Level 1.45 NOEMÍ LANZA MD Jan 10, 2019 12:57
--- NOTE | 2019-01-10 13:54 | NUR ---
CM/SS. Physician plans for discharge tomorrow, return to [facility] as earlier noted via EMS. Spouse and son both here today, son is feeding patient during radio news writer's visit. Ann reports they will return patient to [facility], they are moving him to a smaller room closer to the main desk area. They are open to see how this transitions and appear to be willing to explore alternate steps if patient's needs can not be met in that environment. Spouse considering taking patient home with paid caregivers vs [facility]. Provided business card for post discharge questions. Addendum: 01/10/19 at 1430 by JUVENCIO VASQUEZ IMM2 presented to patient's spouse, signed freely, in agreement with patient's discharge planned for tomorrow. EMS NEMT document completed and signed by physician. Patient packet prepared to accompany him for [facility]. EMS packet prepared for transport team.
[2019-01-10 15:49] VITALS: BP 105/55
[2019-01-10] MEDS: VITAMIN D3 1,000 UNITS (CHOLECALCIFEROL) TABLET PO SCH (17:54)
[2019-01-10 20:18] VITALS: BP 126/76
[2019-01-11 00:06] VITALS: BP 156/80
[2019-01-11] MEDS: PIPERACILLIN/TAZO 4.5 GM/NS 100 ML IV SCH ×4 (00:45→08:30)
[2019-01-11] MEDS: RT-ALBUTEROL SULF 2.5 MG/3 ML PRE-MIX VIAL IH SCH ×3 (03:10→10:44)
[2019-01-11 07:40] VITALS: BP 127/75
[2019-01-11] MEDS: LEVETIRACETAM 500 MG (KEPPRA) TAB PO SCH (08:30)
[2019-01-11] MEDS: SENNOSIDES 8.6 MG (SENOKOT) TAB PO SCH (08:30)
[2019-01-11] MEDS: ALPRAZolam 0.25 MG (XANAX) TAB PO SCH (08:30)
[2019-01-11] MEDS: AMANTADINE 100 MG (SYMMETREL) CAP PO SCH (08:30)
--- NOTE | 2019-01-11 11:26 | Progress Note-Hospitalist ---
Progress Note Progress Notes/Assess & Plan Date Seen 01/11/19 Time Seen by Provider: 11:23 Assessment & Plan The patient's reports that he ate his breakfast this morning with some relISH. His vital signs are very stable. Physical exam: Color is good. He does not joint in the conversation between his and me. Lungs are clear to auscultation. CV is regular. Impression: 1.[place]'s chorea. 2.sepsis/pneumonia. Plan: Discharge to return to his assisted living facility at [place]. He will require ambulance transportation as he is bedfast. NOEMÍ LANZA MD January 11, 2019 11:26
--- NOTE | 2019-01-11 11:35 | Discharge Inst-Simple/Standard ---
Discharge Inst-Standard Patient Instructions/Follow Up Plan of Care/Instructions/FU: Return to previous facility. Medications as listed on the discharge sequence. Mechanical soft diet. Liquids at nectar consistency. Decubitus prevention program. The patient is a total lIFT. He certainly can be placed in a recliner. Activity as Tolerated: Yes Goal: Comfort Discharge Diet: Soft Diet (mechanical soft) NOEMÍ LANZA MD January 11, 2019 11:35
--- NOTE | 2019-01-11 11:43 | D/C HH Face to Face Order ---
D/C Face to Face Orders Instructions for Patient Via [employer], Patient Instructions/FollowUp: y Physician to follow Patient: ALLISON Discharge Diet for Home: other diet Patient Data-Allergies,Ht & Wt Patient Allergies: Coded Allergies: No Known Drug Allergies (Unverified , 01/05/19) Height (Feet): 5 Height (Inches): 11.00 Weight (Pounds): 158 Weight (Ounces): 7.0 Home Health Need/Face to Face Date of Face to Face: January 11, 2019 Clinical Findings: Generalized weakness and fatigue, Instability, Muscle weakness, Non or partial weight bearing, Unsteady gait, Other-list in note ( Vic's chorea) I have seen Pt [id number]: Yes Discharged To: Other Diagnosis/Conditions: Vic's chorea Patient is Homebound due to: Muscle weakness, Non-weight bearing Homebound Status Due to the above stated illness, injury or surgical procedure (medical condition or diagnosis) and associated clinical findings, the patient is homebound because of his/her inability to leave home except with aid of a supportive device and/or person AND leaving the home requires a considerable and taxing effort or is medically contraindicated. Pt req the following assistanc: Aid of another person Home Health Nursing Orders Home Health Services Order: Nursing Services, Financial Aid Advisor-Evaluate & Treat, Physical Therapy-Evaluate & Treat Home Health Infusion Therapy Line Start Date: Jan 05, 2019 Certify Stmt I certify that this patient is under my care and that I, a nurse practitioner or a physician; a purchasing administrative assistant working with me, had a face to face encounter that - meets the physician face to face encounter requirements with this patient as dated. NOEMÍ LANZA MD January 11, 2019 11:43
--- NOTE | 2019-01-11 12:44 | NUR ---
CARRERA CATHETER REMOVED. 8ML ASPIRATED FROM BALLOON. PATIENT TOLERATED WELL. 550 ML OF OUT PUT IN CATHETER AT TIME OF REMOVAL.
[2019-01-11 13:00] VITALS: BP 127/75
--- NOTE | 2019-01-11 13:00 | NUR ---
[facility] HERE TO RETAIL ACCOUNT SPECIALIST PATIENT. PATIENT TRANSFERRED TO [facility]. DISCHARGE PAPERWORK AND PERSONAL BELONGINGS SENT WITH EMS. ACCOMPANIED EMS AND PATIENT OFF THE FLOOR.
--- NOTE | 2019-01-11 13:56 | NUR ---
REPORT CALLED TO LUIS RODRIGUEZ AT [facility].
--- NOTE | 2019-01-11 14:38 | NUR ---
CM/SS. Patient [facility] via [facility]. [facility]: Coordinated with [facility] for PT/OT. Discussed with [facility]ha who indicated they used [facility] for all therapy needs at the facility. Dr. Clyde Turner will manage [facility] orders as PCP.
--- NOTE | 2019-02-08 13:24 | Discharge Summary-Hospitalist ---
Diagnosis/Chief Complaint Date of Admission Jan 05, 2019 at 15:55 Date of Discharge January 11, 2019 at 13:00 Discharge Date: January 11, 2019 Admission Diagnosis Assessment: Aspiration pneumonia Vic's chorea HTN Seizures Hemorrhagic stroks 01/28 Falls Severe debility CRI Plan: Home meds Nebs O2 Abx Speech therapy Discharge Diagnosis 1.aspiration pneumonia. 2.[place]'s chorea. 3.multiple closed head injuries secondary to falls (1) Aspiration pneumonitis Status: Acute (2) [place] chorea Status: Chronic (3) Parkinson disease Status: Chronic (4) Falls Status: Chronic (5) Seizure Status: Chronic (6) Hypertension Status: Chronic (7) Renal insufficiency Status: Chronic (8) Chronic constipation Status: Chronic (9) Elevated brain natriuretic peptide (BNP) level Status: Acute (10) Acute encephalopathy Status: Acute Discharge Summary Discharge Physical Exam Allergies: Coded Allergies: No Known Drug Allergies (Unverified , 01/05/19) General Appearance: WD/WN Hospital Course Was the Problem List Reviewed?: Yes The patient was an 83-year-old white male admitted with altered mental status and hypoxia. Chest x-ray suggested aspiration pneumonia. He is very disabled as a function of [place]'s chorea and the multiple falls with head injuries. 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 He has been in an assisted living facility with great and heroic support from his . He received Zosyn IV empirically and improved. He was able to be transferred back to the assisted living facility with home health nursing ordered for the immediate present. He remains in stable but rather tenuous situation given his chronic neuromuscular issues and age. Labs (last 24 hrs) Microbiology 01/05/19 Blood Culture - Final, Complete No growth Patient resulted labs reviewed. Discussion & Recommendations Discharge Planning: >30 minutes discharge planning Discharge Home Medications: Active Scripts Active Reported Thick-It (Starch) 227 Gm Powder PO UD PRN Milk of Magnesia (Magnesium Hydroxide) 400 Mg/5 Ml Oral.susp 30 Ml PO DAILY PRN Amantadine (Amantadine HCl) 100 Mg Capsule 100 Mg PO DAILY PRN Milk of Magnesia (Magnesium Hydroxide) 400 Mg/5 Ml Oral.susp 30 Ml PO TUFRSA Levetiracetam 500 Mg Tablet 500 Mg PO 0800,2000 Senna (Sennosides) 8.6 Mg Tablet 8.6 Mg PO BID Losartan-Hctz 50-12.5 mg Tab (Losartan/Hydrochlorothiazide) 1 Each Tablet 1 Tab PO DAILY Vitamin D (Cholecalciferol (Vitamin D3)) 1,000 Unit Tablet 1,000 Units PO 1700 Amantadine (Amantadine HCl) 100 Mg Capsule 100 Mg PO BID Alprazolam 0.25 Mg Tablet 0.25 Mg PO 0800,1700 Instructions to patient/family Please see electronic discharge instructions given to patient. Clinical Quality Measures DVT/VTE Risk/Contraindication: Risk Factor Score Per Nursin RFS Level Per Nursing on Admit: 4+=Very High Copy Copies To 1: LORENA ALLISON MD Problem Qualifiers (1) Falls: Encounter type: sequela Qualified Codes: W19.XXXS - Unspecified fall, sequela (2) Hypertension: Hypertension type: essential hypertension Qualified Codes: I10 - Essential (primary) hypertension NOEMÍ LANZA MD February 08, 2019 13:24
== END 2019-01-11 13:00 | disposition home health service (06) | DRG 178 ==
LOC: ER FS 12:17 → 4TH 15:55
PROVIDERS: ADMIT Internal Medicine; ATTEND Internal Medicine
DX: J69.0 Pneumonitis due to inhalation of food and vomit (principal); G93.40 Encephalopathy, unspecified; G10 Huntington's disease; E86.0 Dehydration; I95.9 Hypotension, unspecified; R09.02 Hypoxemia; R13.12 Dysphagia, oropharyngeal phase; R79.89 Other specified abnormal findings of blood chemistry; R94.31 Abnormal electrocardiogram [ECG] [EKG]; I12.9 Hypertensive chronic kidney disease with stage 1 through stage 4 chronic kidney disease, or unspecified chronic kidney disease; N18.9 Chronic kidney disease, unspecified; I49.3 Ventricular premature depolarization; G20 Parkinson's disease; K59.09 Other constipation; F41.9 Anxiety disorder, unspecified; G40.909 Epilepsy, unspecified, not intractable, without status epilepticus; Z90.79 Acquired absence of other genital organ(s); Z87.820 Personal history of traumatic brain injury; Z74.01 Bed confinement status
CPT/HCPCS: 36415; 51702; 70450; 71045; 80053; 81000; 83605; 83880; 84484; 85025; 85610; 85730; 87040; 93005; 94640; 94760; 96361; 96365; 96375

== ENCOUNTER 2019-06-25 18:28 | Emergency (ER) | payer MEDICARE, OTHER ==
[~2019-06-25] VITALS: Ht 170 cm; Wt 72.0 kg
[~2019-06-25 18:28] MED LIST: ALPR0.254 PO; AMAN100C18 PO; CHOL100045 PO; LEVE500T6 PO; LOSA1TAB20 PO; MAGN400O7 PO; SENN-141 PO; STAR227P PO
--- NOTE | 2019-06-25 18:43 | ED General ---
General Stated Complaint: POSSIBLE SEIZURE Source of Information: Patient, EMS, Spouse History of Present Illness Date Seen by Provider: Jun 25, 2019 Time Seen by Provider: 18:31 Initial Comments 83-year-old male presenting with EMS after having an episode at the retirement where he was eating supper and then started staring off in space. His states that he was not responding to her for a couple of minutes. When the staff had gone to take his blood pressure it was low. He had previous head bleed and seizures due to that from over a year ago. He takes Keppra for those. He has not been having cough, chest pain, nausea/vomiting, pain with urination. He has evan's chorea. He has not had an episode like this before. He has not had a fever or chills. He has chronic constipation but had a BM yesterday Allergies and Home Medications Allergies Coded Allergies: No Known Drug Allergies (Unverified , 01/05/19) Home Medications Alprazolam 0.25 Mg Tablet, 0.25 MG PO 0800,1700, (Reported) Amantadine HCl 100 Mg Capsule, 100 MG PO BID, (Reported) Amantadine HCl 100 Mg Capsule, 100 MG PO DAILY PRN for INCREASED INVOLUNTARY MOVEMENT, (Reported) Cholecalciferol (Vitamin D3) 1,000 Unit Tablet, 1,000 UNITS PO 1700, (Reported) Levetiracetam 500 Mg Tablet, 500 MG PO 0800,2000, (Reported) Losartan/Hydrochlorothiazide 1 Each Tablet, 1 TAB PO DAILY, (Reported) Magnesium Hydroxide 400 Mg/5 Ml Oral.susp, 30 ML PO TuFrSa, (Reported) Magnesium Hydroxide 400 Mg/5 Ml Oral.susp, 30 ML PO DAILY PRN for CONSTIPATION- 7TH LINE, (Reported) Sennosides 8.6 Mg Tablet, 8.6 MG PO BID, (Reported) Starch 227 Gm Powder, PO UD PRN for LIQUIDS, (Reported) Patient Home Medication List Home Medication List Reviewed: Yes Review of Systems Review of Systems Constitutional: No chills, No fever EENTM: no symptoms reported Respiratory: no symptoms reported Cardiovascular: no symptoms reported Gastrointestinal: no symptoms reported Genitourinary: no symptoms reported Musculoskeletal: no symptoms reported Skin: no symptoms reported Psychiatric/Neurological: Seizure (possible seizure with staring off into space) Past Jzilcdr-Nyiufg-Dgvyqt Hx Past Med/Social Hx: Reviewed Nursing Past Med/Soc Hx Patient Social History Recent Hopitalizations: No Immunizations Up To Date Date of Pneumonia Vaccine: Jun 13, 2018 Seasonal Allergies Seasonal Allergies: No Past Medical History Surgeries: Yes (HERNIA REPAIR) Prostatectomy Respiratory: No Cardiac: Yes Hypertension Neurological: Yes ([place]) Parkinson's Disease, Seizure Disorder, Traumatic Brain Injury Gastrointestinal: Yes Chronic Constipation Musculoskeletal: No Endocrine: No HEENT: No Cancer: No Psychosocial: Yes Anxiety Integumentary: No Blood Disorders: No Physical Exam Vital Signs Vital Signs - First Documented 06/25/19 19:00 Temp 36.5 Pulse 68 Resp 18 B/P (MAP) 119/62 (81) Pulse Ox 95 O2 Delivery Nasal Cannula O2 Flow Rate 2.00 FiO2 95 Capillary Refill : Height, Weight, BMI Height: 5'11.00" Weight: 158lbs. 7.0oz. [id number]; 24.8 BMI Method:Actual General Appearance: No Apparent Distress, Other (having chorea type movements) HEENT: PERRL/EOMI, Pharynx Normal Neck: Normal Inspection, Non Tender, Supple Respiratory: Chest Non Tender, Lungs Clear, Normal Breath Sounds, No Accessory Muscle Use Cardiovascular: Regular Rate, Rhythm, Normal Peripheral Pulses Gastrointestinal: Normal Bowel Sounds, No Pulsatile Mass, Non Tender, Soft Rectal: Deferred Extremity: Normal Capillary Refill, Non Tender, No Calf Tenderness Neurologic/Psychiatric: Alert; No Oriented x3 (oriented to self and place) Skin: Warm/Dry, Pallor Progress/Results/Core Measures Suspected Sepsis SIRS Temperature: Pulse: Respiratory Rate: Laboratory Tests 06/25/19 18:50: White Blood Count 7.8 Blood Pressure / Mean: Laboratory Tests 06/25/19 18:50: Creatinine 1.89H, Platelet Count 299, Total Bilirubin 0.5 Results/Orders Lab Results Laboratory Tests Test 06/25/19 18:50 06/25/19 19:07 Range/Units White Blood Count 7.8 4.3-11.0 10^3/uL Red Blood Count 4.80 4.35-5.85 10^6/uL Hemoglobin 15.1 13.3-17.7 G/DL Hematocrit 47 40-54 % Mean Corpuscular Volume 98 80-99 FL Mean Corpuscular Hemoglobin 31 25-34 PG Mean Corpuscular Hemoglobin Concent 32 32-36 G/DL Red Cell Distribution Width 14.0 10.0-14.5 % Platelet Count 299 130-400 10^3/uL Mean Platelet Volume 10.6 H 7.4-10.4 FL Neutrophils (%) (Auto) 54 42-75 % Lymphocytes (%) (Auto) 26 12-44 % Monocytes (%) (Auto) 11 0-12 % Eosinophils (%) (Auto) 8 0-10 % Basophils (%) (Auto) 1 0-10 % Neutrophils # (Auto) 4.2 1.8-7.8 X 10^3 Lymphocytes # (Auto) 2.1 1.0-4.0 X 10^3 Monocytes # (Auto) 0.9 0.0-1.0 X 10^3 Eosinophils # (Auto) 0.6 H 0.0-0.3 10^3/uL Basophils # (Auto) 0.1 0.0-0.1 10^3/uL Sodium Level 144 135-145 MMOL/L Potassium Level 4.4 3.6-5.0 MMOL/L Chloride Level 108 H 98-107 MMOL/L Carbon Dioxide Level 24 21-32 MMOL/L Anion Gap 12 5-14 MMOL/L Blood Urea Nitrogen 32 H 7-18 MG/DL Creatinine 1.89 H 0.60-1.30 MG/DL Estimat Glomerular Filtration Rate 34 BUN/Creatinine Ratio 17 Glucose Level 140 H 70-105 MG/DL Calcium Level 9.2 8.5-10.1 MG/DL Corrected Calcium 9.6 8.5-10.1 MG/DL Total Bilirubin 0.5 0.1-1.0 MG/DL Aspartate Amino Transf (AST/SGOT) 16 5-34 U/L Alanine Aminotransferase (ALT/SGPT) 12 0-55 U/L Alkaline Phosphatase 83 40-136 U/L Total Protein 6.5 6.4-8.2 GM/DL Albumin 3.5 3.2-4.5 GM/DL Urine Color YELLOW Urine Clarity CLEAR Urine pH 5.5 5-9 Urine Specific [place] >=1.030 1.016-1.022 Urine Protein NEGATIVE NEGATIVE Urine Glucose (UA) NEGATIVE NEGATIVE Urine Ketones NEGATIVE NEGATIVE Urine Nitrite NEGATIVE NEGATIVE Urine Bilirubin NEGATIVE NEGATIVE Urine Urobilinogen 0.2 NORMAL MG/DL Urine Leukocyte Esterase NEGATIVE NEGATIVE Urine RBC (Auto) NEGATIVE NEGATIVE Urine RBC NONE /HPF Urine WBC NONE /HPF Urine Crystals NONE /LPF Urine Bacteria NEGATIVE /HPF Urine Casts NONE /LPF Urine Mucus NEGATIVE /LPF Urine Culture Indicated NO My Orders Orders - SHANI KASPER MD Cbc With Automated Diff (06/25/19 18:43) Comprehensive Metabolic Panel (06/25/19 18:43) O2 (06/25/19 18:43) Ed Iv/Invasive Line Start (06/25/19 18:43) Monitor-Rhythm Ecg Trace Only (06/25/19 18:43) Ua Culture If Indicated (06/25/19 18:43) Straight Cath For Spec.-Adult (06/25/19 18:43) Ns Iv 1000 Ml (Sodium Chloride 0.9%) (06/25/19 19:46) Vital Signs/I&O 06/25/19 06/25/19 06/25/19 19:00 19:00 20:35 Temp 36.5 Pulse 68 80 Resp 18 16 B/P (MAP) 119/62 (81) 160/67 Pulse Ox 95 95 95 O2 Delivery Nasal Cannula Nasal Cannula Room Air O2 Flow Rate 2.00 FiO2 95 Capillary Refill : Progress Note #1: Progress Note ordered labs and CT head to evaluate for bleeding or stroke or acute change to cause his episode of staring off in space, cxr since he was initially having a low oxygen saturation but it was also a matter of his fingers were cold and it was hard to pickle sorter a good waveform for the O2 saturation. Progress Note #2: Progress Note Labs appear stable without acute change on his CBC or chemistry. His urine shows some concentration to go with dehydration. Family requests that we defer on the CT head and CXR since he appears to be back at his baseline and with him having no recent falls and his Oxygen saturation is now staying up in a normal range, it seemed reasonable to defer these exams. will give IVF for hydration and discharge back to [facility]. Departure Impression Primary Impression: Dehydration Additional Impression: Seizure disorder Disposition: 01 HOME, SELF-CARE Condition: Stable Departure-Patient Inst. Decision time for Depature: 19:48 Referrals: NO,LOCAL PHYSICIAN (PCP/Family) Primary Care Physician Patient Instructions: Dehydration, Adult (DC), Seizures, Adult (DC) Add. Discharge Instructions: Encourage fluids and hydration. Check with primary provider about the seizure medicines and if further concerns. If having more seizures they may adjust his dose. SHANI KASPER MD Jun 25, 2019 18:43
[2019-06-25 18:59] LABS: HEMATOCRIT 47 % (40-54); HEMOGLOBIN 15.1 G/DL (13.3-17.7); MEAN CORPUSCULAR HEMOGLOBIN 31 PG (25-34); MEAN CORPUSCULAR HGB CONC 32 G/DL (32-36); MEAN CORPUSCULAR VOLUME 98 FL (80-99); MEAN PLATELET VOLUME 10.6 FL (7.4-10.4); PLATELET COUNT 299 10^3/uL (130-400); WHITE BLOOD COUNT 7.8 10^3/uL (4.3-11.0)
[2019-06-25 19:00] LABS: BASOPHILS # (AUTO) 0.1 10^3/uL (0.0-0.1); BASOPHILS % (AUTO) 1 % (0-10); EOSINOPHILS # (AUTO) 0.6 10^3/uL (0.0-0.3); EOSINOPHILS % (AUTO) 8 % (0-10); LYMPHOCYTES # (AUTO) 2.1 X 10^3 (1.0-4.0); LYMPHOCYTES % (AUTO) 26 % (12-44); MONOCYTES # (AUTO) 0.9 X 10^3 (0.0-1.0); MONOCYTES % (AUTO) 11 % (0-12); NEUTROPHILS # (AUTO) 4.2 X 10^3 (1.8-7.8); NEUTROPHILS % (AUTO) 54 % (42-75)
[2019-06-25 19:18] LABS: BILIRUBIN,TOTAL 0.5 MG/DL (0.1-1.0); CALCIUM 9.2 MG/DL (8.5-10.1); CREATININE SERUM 1.89 MG/DL (0.60-1.30); POTASSIUM 4.4 MMOL/L (3.6-5.0); TOTAL PROTEIN 6.5 GM/DL (6.4-8.2)
[2019-06-25 19:19] LABS: ALBUMIN 3.5 GM/DL (3.2-4.5)
[2019-06-25 19:29] LABS: CLARITY,URINE CLEAR; COLOR,URINE YELLOW; PH,URINE 5.5 (5-9)
[2019-06-25 19:30] LABS: BACTERIA,URINE NEGATIVE /HPF; BILIRUBIN,URINE NEGATIVE (NEGATIVE); GLUCOSE, URINE (UA) NEGATIVE (NEGATIVE); KETONES,URINE NEGATIVE (NEGATIVE); LEUKOCYTE ESTERASE ,URINE NEGATIVE (NEGATIVE); NITRITE,URINE NEGATIVE (NEGATIVE); PROTEIN,URINE NEGATIVE (NEGATIVE); UROBILINOGEN,URINE 0.2 MG/DL (NORMAL)
[2019-06-25] MEDS ORDERED: NS IV 1000 ML 1,000 ML IV STA (19:46)
[2019-06-25 20:35] VITALS: BP 160/67
== END 2019-06-25 20:51 | disposition home or self-care (01) ==
LOC: EDUNIT# 18:28 → ER FS 18:30
DX: E86.0 Dehydration (principal); G40.909 Epilepsy, unspecified, not intractable, without status epilepticus; I10 Essential (primary) hypertension; G20 Parkinson's disease; F41.9 Anxiety disorder, unspecified; Z87.820 Personal history of traumatic brain injury; Z98.890 Other specified postprocedural states
CPT/HCPCS: 36415; 51701; 80053; 81000; 85025; 93041